=== PATIENT | female | born 1980 | race Caucasian/White ===

== ENCOUNTER 2018-03-16 08:19 | Emergency (ER) | payer SELFPAY ==
[~2018-03-16] VITALS: Ht 175.3 cm; Wt 80.0 kg
[2018-03-16 08:21] VITALS: BP 142/80
[2018-03-16] MEDS ORDERED: IBUPROFEN 200 MG TABLET ONE (09:22)
[2018-03-16] MEDS ORDERED: IBUPROFEN 200 MG TABLET PO ONE (09:30)
== END 2018-03-16 09:33 | disposition home or self-care (01) ==
LOC: ED 09:15
DX: K08.89 Other specified disorders of teeth and supporting structures (principal); Z88.0 Allergy status to penicillin; Z88.1 Allergy status to other antibiotic agents
CPT/HCPCS: 99283